=== PATIENT | female | born 1995 | race Caucasian/White ===

== ENCOUNTER 2018-09-16 17:59 | Emergency (ER) | payer OTHER, MEDICAID ==
[2018-09-16 18:27] VITALS: BMI 19.8
[2018-09-16 18:33] VITALS: BP 118/72; PULSE 88; RESP 18; TEMP 98.5; O2SAT 100
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
--- NOTE | 2018-09-17 10:08 | RAD ---
Date of service: 09/16/2018 PROCEDURE: Radiographs of the Chest and Left Ribs. HISTORY: pain COMPARISON: None available. TECHNIQUE: Frontal radiograph of the chest and multiple oblique radiographs of the left ribs were obtained. FINDINGS: LEFT RIBS: No fracture or focal lesion visualized. LUNGS: Clear. PLEURA: No pneumothorax or pleural fluid. CARDIOVASCULAR: Normal cardiac size. No pulmonary vascular congestion. No aortic atherosclerotic calcification present OTHER FINDINGS: None. IMPRESSION: Unremarkable radiographs of the chest and left ribs. No left rib fracture.
--- NOTE | 2018-09-17 10:09 | RAD ---
Date of service: 09/16/2018 PROCEDURE: Radiographs of the Lumbar Spine. HISTORY: pain COMPARISON: No prior. FINDINGS: BONES: Normal alignment. No listhesis. No fracture. DISC SPACES: Unremarkable. OTHER FINDINGS: None. IMPRESSION: Unremarkable radiographs of the lumbar spine.
== END 2018-09-16 21:28 | disposition home or self-care (01) ==
LOC: ED 17:59
DX: S20.212A Contusion of left front wall of thorax, initial encounter (principal); V43.02XA Car driver injured in collision with other type car in nontraffic accident, initial encounter; Y92.481 Parking lot as the place of occurrence of the external cause; M54.5 Low back pain